=== PATIENT | male | born 1945 | race Caucasian/White ===

== ENCOUNTER 2022-05-14 03:27 | Observation (INO) | payer MEDICARE, OTHER, SELFPAY ==
[2022-05-14] VITALS (10 sets, daily range): BP systolic 108–149; BP diastolic 68–89; PULSE 67–102; RESP 9–18; TEMP 36.4–37.7; O2SAT 94–98; BMI 23.4
--- NOTE | ~2022-05-14 | CT_ITS ---
CT head/brain wo IV con CLINICAL INFORMATION: Reason for Exam dizziness COMPARISON: No prior CT scan available for comparison. TECHNIQUE: Department standard protocol. This CT examination was performed using dose optimization techniques as appropriate, variously including the following: *Automated exposure control *Adjustment of mA and/or kV according to patient size (this includes techniques or standardized protocols for targeted exams where dose is matched to indication/reason for exam; i.e. extremities or head) *Use of iterative reconstruction technique DLP: 636 mGy-cm FINDINGS: CEREBRAL HEMISPHERES: There is no evidence of intra-axial or extra-axial mass, hemorrhage or acute infarct. BRAIN PARENCHYMA: Normal batista-white matter differentiation. SUBDURAL SPACE: No bleed. BASAL GANGLIA AND PINEAL GLAND: Unremarkable VENTRICLES: Symmetric and normal in size. CEREBELLUM AND BRAINSTEM: No space-occupying mass, hemorrhage or acute infarct. CEREBELLOPONTINE ANGLES: No lesion found. ORBITS: No intraorbital mass. VESSELS: Unremarkable SKULL BASE: Unremarkable INCLUDED SINUSES AT SKULL BASE: Clear SKULL AND SKIN: No fracture or bone lesion found. CT/CT head/brain wo IV con IMPRESSION: No CT evidence of intracranial space-occupying mass, bleed or infarct. Normal CT scan does not rule out the possibility of hyperacute infarct in the first 12 hours. If patient symptoms persist may consider correlation with MRI, which is more sensitive for early acute infarct.
--- NOTE | 2022-05-14 03:43 | ED_ITS ---
HPI - Allergic Reaction General Chief complaint: Allergic Reaction Stated complaint: allergic reaction, trouble breathing Time Seen by Provider: 05/14/22 03:42 Source: patient Mode of arrival: ambulatory Limitations: no limitations History of Present Illness HPI narrative: Patient comes to the emergency room complaining of a swollen tongue. Patient states it started approximately 1-1/2 hours ago. Patient states that he has had swollen tongue in the past. 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 Patient states that approximately 12 hours before, patient might have ingested a small amount peak and bread. Patient did not have any mediated reactions. Patient has no rash, no chest pain or shortness of breath. Only the tongue is swollen. Patient denies any trouble swallowing. Prior to arrival, his given 50 mg of Benadryl Related Data Allergies Allergy/AdvReac Type Severity Reaction Status Date / Time peanut AdvReac Severe Anaphylaxis Verified 05/14/22 04:33 Review of Systems Review of Systems: Constitutional : No Weight loss, No Fever, No Chills, No Night Sweats, No Fatigue, No Malaise ENT/Mouth : Complaining of swollen tongue, No Hearing loss, No Ear Pain, No Nasal Congestion, No Sinus Pain, No Hoarseness, No sore throat, No Rhinorrhea, No Swallowing Difficulty Eyes: No Eye Pain, No Swelling, No Redness, No Foreign Body, No Discharge, No Vision Changes Cardiovascular : No Chest Pain, No SOB, No Dyspnea on Exertion, No Orthopnea, No Edema, No Palpitations Respiratory : No Cough, No Sputum, No Wheezing, No Smoke Exposure, No Dyspnea Gastrointestinal : No Nausea, No Vomiting, No Diarrhea, No Constipation, No abdominal Pain, No Hematochezia, No Melena Genitourinary : no irregular bleeding, No Dysuria, No Urinary Frequency, No Hem aturia, No Urinary Incontinence, No Urgency, No Flank Pain, No Urinary Flow Changes, No Hesitancy Musculoskeletal : No joint pain, No Myalgias, No Joint Swelling Skin : No Skin Lesions, No rash Neuro : No Weakness, No Numbness, No Paresthesias, No Loss of Consciousness, No Dizziness, No Headache Psych : No Anxiety/Panic, No Depression, No SI/HI/AH/VH, No Social Issues, Heme/Lymph: No Bruising, No Bleeding,No Lymphadenopathy Endocrine : No Polyuria, No Polydipsia, No Temperature Intolerance PMFSH Social History Social History Advance Directives: No Physical Exam ED Vital Signs: Vital Signs - 24 hr 05/14/22 03:53 05/14/22 04:34 05/14/22 06:29 Temperature 99.9 F 97.9 F Pulse Rate 72 67 67 Respiratory Rate 17 11 L 12 Blood Pressure 148/88 H 140/84 H 108/76 Pulse Oximetry 98 96 95 Oxygen Delivery Method Room Air Room Air Room Air BMI result Body Mass Index 23.4 Const Other: Appearance: Alert. Oriented X3. No acute distress. Eyes: Pupils equal, round and reactive to light. ENT: Patient has moderate tongue edema, no lip swelling Neck: Normal inspection. Neck supple. No lymph nodes noted. No crepitus CVS: Normal heart rate and rhythm. Pulses normal. Normal S1 and S2 Respiratory: No respiratory distress. Breath sounds normal. No Wheezing. No rales Abdomen: Soft and nontender. No rigidity. No distention. Skin: Skin warm and dry. Normal skin color. Normal skin turgor. Extremities: No lower extremity edema. No Lacerations. No Rash Neuro: Oriented X 3. No motor deficit. No sensory deficit. Moving all extremities. No slurred speech. CN 2 through 12 grossly intact Psych: calm, cooperative, normal affect Course Course Course Narrative: -patient is stable, speaking full sentences, oxygen saturation 100% on room air. -patient receiving now IV diphenhydramine, famotidine and Solu-Medrol. -will frequently reassessed the patient. Medications Administered Discontinued Medications Generic Name Dose Route Start Last Admin Trade Name Freq PRN Reason Stop Dose Admin Diphenhydramine HCl 50 mg 05/14/22 03:42 05/14/22 03:58 Diphenhydramine Hcl 50 Mg/Ml Vial IVPUSH 05/14/22 03:43 50 mg ONCE ONE Administration Famotidine 20 mg 05/14/22 03:42 05/14/22 03:58 Famotidine/Pf 20 Mg/2 Ml Vial IVPUSH 05/14/22 03:43 20 mg ONCE ONE Administration Methylprednisolone Sodium Succinate 125 mg 05/14/22 03:42 05/14/22 03:58 Methylprednisolone Sod Succ 125 Mg/2 Ml Vial IVPUSH 05/14/22 03:43 125 mg ONCE ONE Administration Medical Decision Making Medical Decision Making MDM Narrative: -patient has had multiple episodes of facial swelling. 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 -at this time, patient's left side of the tongue is still swollen, no difficulty breathing, no airway impairment. -I discussed the patient with Dr. Mehta, pt being admitted Differential Diagnosis Differential Diagnoses: The differential diagnosis associated with the presentation includes (Allergic reaction, angioedema) Admission/Observation Consideration of admission/observation: Escalation of care including admission/observation considered Consult Healthcare Provider Management of the patient was discussed with: Hospitalist Lab Data [facility] Lab Attestation statement: I reviewed the patient's lab results. 05/14/22 03:54 05/14/22 04:18 Labs: Lab Results 05/14/22 05/14/22 Range/Units 03:54 04:18 WBC 9.2 (4.8-10.8) X10*3/uL RBC 4.14 L (4.60-5.80) X10*6/uL Hgb 13.4 L (14.0-18.0) g/dl Hct 38.9 L (42.0-52.0) % MCV 94.0 (80.0-98.0) fL MCH 32.4 (27.0-33.0) pg MCHC 34.4 (31.0-36.0) g/dl RDW 11.9 (11.0-16.0) % Plt Count 223 (160-400) X10*3/uL MPV 9.1 L (9.4-12.4) fL Immature Gran % (Auto) 0.4 (0.0-0.4) % Neut % (Auto) 64.2 (45-73) % Lymph % (Auto) 20.4 (20-40) % Mills % (Auto) 9.9 (2-11) % Eos % (Auto) 4.7 H (0-4) % Baso % (Auto) 0.4 (0-2) % Lymph # (Auto) 1.9 (1.2-4.9) X10*3/uL Mills # (Auto) 0.9 (0.1-1.2) X10*3/uL Eos # (Auto) 0.4 (0.0-0.4) X10*3/uL Baso # (Auto) 0.0 (0.0-0.2) X10*3/uL Abs Immat Gran (auto) 0.04 H (0.00-0.03) X10*3/uL Absolute Neuts (auto) 5.9 (2.0-8.3) x10*3/uL Absolute Nucleated RBC 0.000 (0.0-0.012) X10*3/uL Nucleated RBC % (auto) 0.0 (0.0-0.2) /100WBC Sodium 141 (135-145) mmol/L Potassium 4.4 (3.3-5.1) mmol/L Chloride 107 (96-108) mmol/L Carbon Dioxide 24 (22-29) mmol/L Anion Gap 14 (12-20) BUN 22 H (9-16) mg/dL Creatinine 1.01 (0.5-1.4) mg/dL Estim Creat Clear Calc 61.2 Estimated GFR > 60 Random Glucose 89 (60-115) mg/dL Calcium 8.7 (8.4-10.2) mg/dL Critical Care Time Critical Care Time Critical Care Time: Yes Total Critical Care Time: 45 Attestation: I have personally provided critical care time. Time includes review of lab data, radiology results, discussion with consultants, and monitoring for potential decompensation. Intervention performed as documented. Discharge Plan Discharge Clinical Impression: Angioedema Patient Disposition: Admitted As Inpatient
[2022-05-14] MEDS: methylPREDNISolone Sod Succ 125 MG/2 ML VIAL IVPUSH ×2 (03:58→06:52)
[2022-05-14] MEDS: Famotidine/PF 20 MG/2 ML VIAL IVPUSH ×2 (03:58→20:16)
[2022-05-14] MEDS: diphenhydrAMINE HCL 50 MG/ML VIAL IVPUSH (03:58)
[2022-05-14 03:59] LABS: MANUAL DIFF FLAG NO
[2022-05-14 04:00] LABS: Basophils Percent Auto 0.4 % (0-2); Eosinophils Absolute Auto 0.4 X10*3/uL (0.0-0.4); Eosinophils Percent Auto 4.7 % (0-4); Hematocrit 38.9 % (42.0-52.0); Hemoglobin 13.4 g/dl (14.0-18.0); Imm Gran Abs Auto 0.04 X10*3/uL (0.00-0.03); Imm Gran Pct Auto 0.4 % (0.0-0.4); Lymphocytes Absolute Auto 1.9 X10*3/uL (1.2-4.9); Lymphocytes Percent Auto 20.4 % (20-40); Mean Corpuscular HGB Conc 34.4 g/dl (31.0-36.0); Mean Corpuscular Hemoglobin 32.4 pg (27.0-33.0); Mean Platelet Volume 9.1 fL (9.4-12.4); Monocytes Absolute Auto 0.9 X10*3/uL (0.1-1.2); Monocytes Percent Auto 9.9 % (2-11); Neutrophils Absolute Auto 5.9 x10*3/uL (2.0-8.3); Neutrophils Percent Auto 64.2 % (45-73); Platelet Count 223 X10*3/uL (160-400); Red Blood Count 4.14 X10*6/uL (4.60-5.80); Red Cell Distribution Width 11.9 % (11.0-16.0); White Blood Count 9.2 X10*3/uL (4.8-10.8)
--- NOTE | 2022-05-14 04:40 | PC.NURSE ---
pt reports he is feeling better, pt able to swallow secretion. Will continue to monitor.
[2022-05-14 04:49] LABS: Anion Gap 14 (12-20); Blood Urea Nitrogen 22 mg/dL (9-16); Calcium 8.7 mg/dL (8.4-10.2); Carbon Dioxide 24 mmol/L (22-29); Chloride 107 mmol/L (96-108); Creatinine Clr Calc Pharmacy 61.2; Estimated Glomerular Filt Rate > 60; Glucose Random 89 mg/dL (60-115); Potassium 4.4 mmol/L (3.3-5.1); Sodium 141 mmol/L (135-145)
--- NOTE | 2022-05-14 06:59 | PC.NURSE ---
pt still have tongue swollen, no airway distress at this time. Will continue to monitor.
[2022-05-14 07:44] LABS: COVID-19 Test Negative (Negative); IDNOW Serial# 16C4AD1C
--- NOTE | 2022-05-14 08:51 | PHA.MEDREC ---
Pharmacy Consult ? Medication Reconciliation Pharmacy has completed the medication reconciliation. Spoke to patient and patient's to confirm meds.
--- NOTE | 2022-05-14 09:09 | PM.IMHP ---
History of Present Illness Date of Service: 05/14/22 Attending physician on admission: Fabi Byers Chief Complaint: lip and tongue swellin 76-year-old male with past medical history of prostate cancer and radiation 3-4 years ago (follows up in [place])-he has history of the 5-6 months of tongue swelling initially and then subsequently also started to have lip swelling. He says that and in last couple months he has seen his PCP and was referred to an radiotelegraphist-where he was told that he had peanut , most of the nuts allergy.Patient states that approximately 12 hours before, patient might have ingested checken and bread from (outside ordered), if thinks that maybe cross contamination? nuts. In addition he says that he has history of seasonal hay fever. In addition he complains that he gets slightly dizzy for few seconds when he suddenly stands up or move his head. Denies any new complaint of chest pain or shortness of breath or abdominal pain or fever or chills or nausea or vomiting or any trouble swallowing Denies any cough Denies any weakness or numbness. Lab imaging reviewed: CBC BMP seems fine Patient [id number], Benadryl, famotidine in ED lip swelling seems to be improving as well as tongue swelling , so admission was requested for observation for possible question of angioedema. Social history patient lives with : Ex-smoker(quit smoking in 1977, had few decades of 1/2 pack cig), smokes weeds occasionally once a month, no recreational drugs or alcohol use. Review of Systems Review of Systems: As above. [facility] Medical History (Updated 05/14/22 @ 17:22 by Fabi Byers MD) Constipation Prostate cancer Pertinent family history: mother has dm. Social History (Updated 05/14/22 @ 09:25 by Fabi Byers MD) Household Members: Spouse and Family Alcohol intake: never Patient Tobacco Use Status: Former Tobacco user Use of substances other than those prescribed or required for medical reasons: No Substance Use Type: Marijuana and Other Advance Directives: No Advance Directives Information Provided: Yes (declined) Advance Directives on File: No Nutrition Risks: No Nutritional Risk Meds Allergies Allergy/AdvReac Type Severity Reaction Status Date / Time nut - unspecified Allergy Severe Anaphylaxis Verified 05/14/22 17:06 peanut AdvReac Severe Anaphylaxis Verified 05/14/22 04:33 Active Medications: Current Medications Diphenhydramine HCl (Diphenhydramine Hcl 25 Mg Capsule) 25 mg PO Q6H PRN PRN Reason: allergy Famotidine (Famotidine/Pf 20 Mg/2 Ml Vial) 20 mg IVPUSH [facility]ID [facility] Methylprednisolone Sodium Succinate (Methylprednisolone Sod Succ 40 Mg/Ml Vial) 40 mg IVPUSH [facility]ID [facility] Sodium Chloride (0.9 % Sodium Chloride Flush 3 Ml Syringe) 3 ml IVFLUSH QSHIFT [facility] Home Medications Medication Instructions Recorded Confirmed Last Taken Type aspirin 325 mg tablet,delayed 325 mg PO DAILY PRN Headache 05/14/22 05/14/22 Unknown History release bisacodyl 5 mg tablet,delayed 5 mg PO DAILY PRN Constipation 05/14/22 05/14/22 Unknown History release (Dulcolax (bisacodyl)) diphenhydramine HCl 25 mg capsule 50 mg PO DAILY PRN food allergies 05/14/22 05/14/22 Unknown History (Benadryl) Physical Exam Vital Signs and Narrative: Vital Signs: Last Vital Signs Temp 97.7 F 05/14/22 09:06 Pulse 77 05/14/22 09:06 Resp 9 L 05/14/22 09:06 BP 118/76 05/14/22 09:06 Pulse Ox 94 05/14/22 09:06 O2 Del Method 05/14/22 09:06 BMI result Body Mass Index 23.4 Appearance: Alert.? Oriented X3.? not in distress.? Eyes: Pupils equal, round and reactive to light.? Sclera nonicteric.? ENT: Pharynx normal.? Moist mucous membranes. cvs: rrr, [id number] . res: clear to auscultation ,no rhonchii or wheezing abd: no rebound or guarding ,nt, bs present. ext pulses present , no cyanosis. neuro: axo3 , nonfocal. gait normal Results Labs 05/14/22 03:54 05/14/22 04:18 Labs: Laboratory Results - last 24 hr 05/14/22 05/14/22 05/14/22 03:54 04:18 07:22 MCV 94.0 MCH 32.4 MCHC 34.4 RDW 11.9 Plt Count 223 MPV 9.1 L Immature Gran % (Auto) 0.4 Neut % (Auto) 64.2 Lymph % (Auto) 20.4 Branch % (Auto) 9.9 Eos % (Auto) 4.7 H Baso % (Auto) 0.4 Lymph # (Auto) 1.9 Branch # (Auto) 0.9 Eos # (Auto) 0.4 Baso # (Auto) 0.0 Abs Immat Gran (auto) 0.04 H Absolute Neuts (auto) 5.9 Absolute Nucleated RBC 0.000 Nucleated RBC % (auto) 0.0 Anion Gap 14 Estim Creat Clear Calc 61.2 Estimated GFR > 60 Random Glucose 89 Calcium 8.7 COVID-19 ([facility]) Negative COVID-19 Clin Com See Note Assessment and Plan (1) Angioedema: Status: Acute (2) Dizziness: Status: Acute Plan 76-year-old male with past medical history of prostate cancer and radiation 3-4 years ago (follows up in [place])-he has history of the 5-6 months of tongue swelling initially and then subsequently also started to have lip swelling. 1. Possible angioedema : ? cross contmination from outside food. continue iv solumedrole,bendryl, pepcid. 2. constipation: continue bisacodyl,miralex. 3.hx of prostate cancer : no new c/o follow up in [place] 4. ? dizziness :possible orthostasis vs bppv will add meclizine orthostasis ,ct head neg possible bppv added ot eval Patient would benefit from staying overnight for observation since has recrrent episode of ?allgery recation vs angioedema : need iv steriods ,bendryl. also need moniter and workup of dizziness. Assessment plan coordination time spent 70 minute. Time Spent With Patient Time: Total time managing care of this patient today ____ minutes. Quality Stroke Does the patient have a stroke diagnosis?: No VTE Prior VTE?: No VTE Risk Level:: Medical - moderate - high VTE Device Contraindication: N/A - Device Ordered VTE Drug Contraindication: N/A - Med Ordered
[2022-05-14] MEDS: polyethylene glycoL 3350 17 GM POWD.PACK PO (10:00)
[2022-05-14] MEDS: 0.9 % Sodium Chloride Flush 3 ML SYRINGE IVFLUSH ×2 (15:02→20:16)
[2022-05-14] MEDS: methylPREDNISolone Sod Succ 40 MG/ML VIAL IVPUSH (20:15)
[2022-05-14] MEDS: diphenhydrAMINE HCL 25 MG CAPSULE PO (23:50)
[2022-05-15] VITALS: BP 150/73; PULSE 83; RESP 18; TEMP 36.3; O2SAT 96
--- NOTE | 2022-05-15 07:29 | P.DS_ITS ---
DS: Providers Provider Date of Service: 05/15/22 Date of admission: 05/14/22 09:04 Primary care physician: Thompson Yap MD Attending physician on discharge: Fabi Byers DS: Diagnosis Discharge Diagnosis (1) Angioedema: Status: Acute (2) Dizziness: Status: Acute DS: Summary Hospital Course Hospital Course: 76-year-old male with past medical history of prostate cancer and radiation 3-4 years ago (follows up in [place])-he has history of the 5-6 months of tongue swelling initially and then subsequently also started to have lip swelling.? He says that and in last couple months he has seen his PCP and was referred to an dye reel operator helper-where he was told that he had peanut , most of the nuts allergy.Patient states that approximately 12 hours before, patient might have ingested checken and bread from (outside ordered), if thinks that maybe cross contamination? nuts. In addition he says that he has history of seasonal hay fever. In addition he complains that he gets slightly dizzy for few seconds when he suddenly stands up or move his head. Denies any new complaint of chest pain or shortness of breath or abdominal pain or fever or chills or nausea or vomiting or any trouble swallowing Denies any cough Denies any weakness or numbness. Lab imaging reviewed: CBC BMP seems fine Patient difzywsl-Sfns-Djbkyb, Benadryl, famotidine in ED lip swelling seems to be improving as well as tongue swelling , so admission was requested for observation for possible question of angioedema. Social history patient lives with :? Ex-smoker(quit smoking in 1977, had few decades of 1/2 pack cig), smokes weeds occasionally once a month, no recreational drugs or alcohol use. Hospital course: Patient was admitted due to possible allergic reaction verses possible angioedema: Patient was given steroids, antihistamine,pepcid : Seems to be improved. Patient will be going home with p.o. steroids, Pepcid, Also given EpiPen. Patient is unclear his symptom he is relating may be related to his basement hygiene situation, also there is no history of family for angioedema-will defer further workup for above outpatient- Patient was strongly advised to follow-up with the pcp and dye reel operator helper outpatient for further management and workup. Patient has dizziness-which seems to be positional with moving his head-CT head negative as well as orthostasis, possible BPPV ( benign positional vertigo): Ot eval added. Workup outpatient with PCP. Plan: Continue steroids for few days, also given Pepcid, Benadryl , EpiPen. Patient was strongly advised to follow-up with the dye reel operator helper. Benign positional vertigo-added meclizine. Further workup for dizziness outpatient. Assessment and plan coordination time spent 50 minute. Time Spent with Patient Time attestation: Total time managing care of this patient today ____ minutes. Discharge coordination time: Greater than 30 minutes Quality: Safe Use of Opioids Does Pt have an Active Cancer Diagnosis on the Problem List?: No Quality: Stroke Does the patient have a stroke diagnosis?: No Physical Exam Vital Signs: Vital Signs: Last Vital Signs Temp 97.4 F 05/15/22 00:00 Pulse 83 05/15/22 00:00 Resp 18 05/15/22 00:00 BP 150/73 H 05/15/22 00:00 Pulse Ox 96 05/15/22 00:00 O2 Del Method 05/15/22 00:00 BMI result Body Mass Index 23.4 Appearance: Alert.? Oriented X3.? not in distress.? Eyes: Pupils equal, round and reactive to light.? Sclera nonicteric.? ENT: Pharynx normal.? Moist mucous membranes.no tongue or lip swellin cvs: rrr, [id number] . res: clear to auscultation ,no rhonchii or wheezing abd: no rebound or guarding ,nt, bs present. ext pulses present , no cyanosis. neuro: axo3 , nonfocal. gait normal DS: Data Data Completed and Pending Labs on day of discharge: Laboratory Results - last 24 hr 05/14/22 07:22 COVID-19 ([facility]) Negative COVID-19 Clin Com See Note Imaging Chest x-ray: Radiologist's impression: ITS Impressions Head CT 05/14/22 10:15 IMPRESSION: No CT evidence of intracranial space-occupying mass, bleed or infarct. Normal CT scan does not rule out the possibility of hyperacute infarct in the first 12 hours. If patient symptoms persist may consider correlation with MRI, which is more sensitive for early acute infarct. Discharge Plan Discharge Patient Disposition: Home, Self-Care Discharge Diagnosis: possible allergic reaction vs angioedema Referrals: Thompson Yap MD [Primary Care Provider] - 1 Week Discharge Medications: New meclizine 12.5 mg Tablet 12.5 mg PO Q6H PRN (Reason: dizziness) Qty: 10 0RF prednisone 20 mg tablet 40 mg PO DAILY Qty: 6 0RF epinephrine [EpiPen] 0.3 mg/0.3 mL auto-injector 0.3 mg IM Q4H PRN (Reason: anaphylaxis) Qty: 2 0RF famotidine 20 mg tablet 20 mg PO BID Qty: 8 0RF Continued aspirin 325 mg Tablet,Delayed Release (Dr/Ec) 325 mg PO DAILY PRN (Reason: Headache) bisacodyl [Dulcolax (bisacodyl)] 5 mg Tablet,Delayed Release (Dr/Ec) 5 mg PO DAILY PRN (Reason: Constipation) Discontinued diphenhydramine HCl [Benadryl] 25 mg Capsule 50 mg PO DAILY PRN (Reason: food allergies) Discharge Orders: Discharge Order (Routine); Ordered 05/15/22 Ordered By: Fabi Byers Diet: Advance to usual diet Activity on Discharge: As tolerated Stand Alone Forms: Patient Portal Discharge page Care Plan Goals: Patient was admitted due to possible allergic reaction vs possible angioedema: Patient was given steroids, antihistamine,pepcid : Seems to be improved. Patient was strongly advised to follow-up with pcp and dye reel operator helper outpatient for further workup and managment. Patient will be going home with p.o. steroids, Pepcid, Also given EpiPen. Patient has dizziness-which seems to be positional with moving his head-CT head negative as well as orthostasis, possible BPPV ( benign positional vertigo): Workup outpatient with PCP. Health Concerns: As above. Plan of Treatment: As above. Assessment: As above. Patient Instructions: Angioedema (GEN), Dizziness (GEN)
[2022-05-15] MEDS: Famotidine/PF 20 MG/2 ML VIAL IVPUSH (07:34)
[2022-05-15] MEDS: 0.9 % Sodium Chloride Flush 3 ML SYRINGE IVFLUSH (07:34)
[2022-05-15] MEDS: methylPREDNISolone Sod Succ 40 MG/ML VIAL IVPUSH (07:34)
[2022-05-15 07:44] VITALS: BP 129/68; PULSE 80; RESP 16; TEMP 36.5; O2SAT 94
--- NOTE | 2022-05-15 14:45 | MHC.CM.PN ---
R[facility]ER[facility] 05/15/22, EMR REVIEWED, CM MET W/PT AND AT BEDSIDE, PT REPORTS HE LIVES W/,DTR AND GKIDS, AT BEDSIDE AND WILL TRANSPORT, PT REPORTS HE IS INDEP W/ALL CARE, DENIES USE OF DME/HOME SERVICES AND DOES NOT ANTIC NEEDING SERVICES ON D/C. PT VERIFIES PCP IS CHIQUITA GLOVER X3 AND PT EDUCATED ON AND COMPLETED A HCP NAMING HIS PHILIP GRANADOS [phone] HIS [facility] AND HIS DTR YUDITH PANG-DARWIN [phone] HIS ALTERNATE. PT DISCHARGED TODAY HOME NO SERVICES W/ FOR TRANSPORT
== END 2022-05-15 13:01 | disposition home or self-care (01) ==
LOC: HO.ED 06:48 → HO.EDOVER 09:17 → HO.S3 16:15
PROVIDERS: Admitting Provider Internal Medicine; Emergency Provider Emergency Medicine; PCP Family Medicine; Visit Provider Internal Medicine
DX: T78.3XXA Angioneurotic edema, initial encounter (principal); R42 Dizziness and giddiness; Z20.822 Contact with and (suspected) exposure to COVID-19; Z85.46 Personal history of malignant neoplasm of prostate
CPT/HCPCS: 36415; 70450; 80048; 85025; 87635; 96374; 96375; 96376; 97165; 99221; 99285; J1200; J2920; J2930